=== PATIENT | female | born 1980 | race Caucasian/White ===

== ENCOUNTER 2023-10-31 15:51 | Emergency (ER) | payer OTHER, SELFPAY ==
[2023-10-31 15:53] VITALS: BP 112/84; PULSE 80; RESP 18; TEMP 36.3; O2SAT 100
--- NOTE | 2023-10-31 15:58 | ED.GENADULT ---
HPI - General Adult General Chief complaint: Wound/Laceration Stated complaint: facial abscess Time Seen by Provider: 10/31/23 15:58 Source: patient Mode of arrival: ambulatory Limitations: no limitations History of Present Illness HPI narrative: PATIENT WAKE UP FROM SLEEP 3 DAYS AGO WITH PIMPLE LIKE LESION AT THE LEFT FACE AT THE LEVEL OF THE LOWER GUM. SLIGHTLY HC, PATIENT KEPT SCRATCHING THAT PIMPLE, OPENED AND LEAKED CLEAR FLUID, YESTERDAY MORNING START GETTING SWELLING AND SURROUNDED BY ERYTHEMA. CURRENTLY PATIENT MAIN COMPLAINT SWELLING, PAIN AND ITCHING. SHE DENIES ANY FEVER, CHILLS, NAUSEA, VOMITING, HEADACHE, VISION CHANGE, TROUBLE SWALLOWING BREATHING. HISTORY OF ANXIETY, DEPRESSION AND GERD. Related Data Home Medications Medication Instructions Recorded Confirmed duloxetine 60 mg capsule,delayed 60 mg PO DAILY 10/31/23 10/31/23 release fremanezumab-vfrm 225 mg/1.5 mL 225 mg subcut MONTHLY 10/31/23 10/31/23 subcutaneous auto-injector ([facility]; to [facility]) ondansetron 4 mg disintegrating 4 mg PO Q4-6H PRN Nausea And 10/31/23 10/31/23 tablet Vomiting pantoprazole 40 mg tablet,delayed 40 mg PO BID 10/31/23 10/31/23 release rizatriptan 10 mg disintegrating 10 mg PO BID PRN Migraine Headache 10/31/23 10/31/23 tablet sumatriptan 20 mg/actuation nasal See Rx Instructions .Route .COMPLEX 10/31/23 10/31/23 spray tizanidine 2 mg tablet 2 mg PO TID PRN Migraine Headache 10/31/23 10/31/23 topiramate 100 mg tablet 100 mg PO BID 10/31/23 10/31/23 Allergies Allergy/AdvReac Type Severity Reaction Status Date / Time No Known Allergies Allergy Unknown Verified 08/22/06 09:12 Review of Systems Review of Systems: All systems reviewed & are unremarkable except as noted in HPI and below Exam Narrative: GENERAL APPEARANCE: WELL-DEVELOPED, WELL-NOURISHED SKIN: NORMAL COLOR , FACIAL EXAM SHOWED 2 MM SCABBED SURROUNDED BY ERYTHEMA AND SWELLING ROUGHLY 4 X 5 CM, NO DISCHARGE, TENDER TO TOUCH, SLIGHTLY WARM AT THE LEVEL OF THE LOWER GUM EXTERNALLY. NO LYMPHADENOPATHY HEAD: NORMOCEPHALIC, NONTRAUMATIC EYES: CLEAR CONJUNCTIVA ENT: OROPHARYNX NORMAL, EARS NORMAL, NOSE NORMAL NECK: SUPPLE, NONTENDER CHEST AND RESPIRATORY: AIRWAY PATENT, NO RESPIRATORY DISTRESS, NO ACCESSORY MUSCLE USE HEART: REGULAR RATE/RHYTHM NEUROLOGIC: ALERT AND ORIENTED ?3, HAND SPLITTER IS NORMAL TESTED, NO GROSS MOTOR DEFICIT Course Vital Signs Vital signs: Vital Signs Temperature 36.3 C L 10/31/23 15:53 Pulse Rate 80 10/31/23 15:53 Respiratory Rate 18 10/31/23 15:53 Blood Pressure 112/84 10/31/23 15:53 Pulse Oximetry 100 10/31/23 15:53 Oxygen Delivery Room Air 10/31/23 15:53 Temperature 36.3 C L 10/31/23 15:53 Pulse Rate 80 10/31/23 15:53 Respiratory Rate 18 10/31/23 15:53 Blood Pressure 112/84 10/31/23 15:53 Pulse Oximetry 100 10/31/23 15:53 Oxygen Delivery Room Air 10/31/23 15:53 Medical Decision Making MDM Narrative Medical decision making narrative: PATIENT PRESENTS WITH POSSIBLE INSECT BITE, PIMPLE, SECONDARY BACTERIAL INFECTION AT THE LEFT FACE AT THE LEVEL OF THE LOWERS GUM, PHYSICAL EXAMINATION SHOWED CELLULITIS AT THAT AREA AND SWELLING DIFFERENTIAL DIAGNOSIS INCLUDES INSECT BITE WITH SECONDARY BACTERIAL INFECTION, LOCALIZED ALLERGIC REACTION PATIENT DOES NOT HAVE ANY FEVER OR CHILLS, THE CELLULITIS AT THE LEVEL OF THE LOWER GUM, BLOOD WORKUP OR IMAGING ARE NOT REQUIRED AT THIS TIME. PATIENT WILL BE STARTED ON CLINDAMYCIN, PREDNISONE ,TO FOLLOW UP WITH FAMILY PHYSICIAN IN 3 DAYS. THE PT WAS DISCHARGED TO HOME.THE PT,S CONDITION UPON DISCHARGE WAS FAIR,EDUCATION WAS PROVIDED TO THE PT IN REFERENCE TO THE FINAL IMP
[2023-10-31 16:28] VITALS: BP 112/84; PULSE 80; RESP 18; TEMP 36.3; O2SAT 100
== END 2023-10-31 16:28 | disposition home or self-care (01) ==
PROVIDERS: Emergency Provider Emergency Medicine
DX: S00.86XA Insect bite (nonvenomous) of other part of head, initial encounter (principal); L03.211 Cellulitis of face; Z79.899 Other long term (current) drug therapy; W57.XXXA Bitten or stung by nonvenomous insect and other nonvenomous arthropods, initial encounter
CPT/HCPCS: 99283

== ENCOUNTER 2024-11-07 13:41 | Emergency (ER) | payer OTHER, SELFPAY ==
[2024-11-07] VITALS (9 sets, daily range): BP systolic 106–125; BP diastolic 63–79; PULSE 67–102; RESP 16–20; TEMP 36.6–36.8; O2SAT 98–100
--- NOTE | ~2024-11-07 | CT_ITS ---
EXAMINATION: CT abdomen pelvis w con, 11/07/2024 14:45 CDT HISTORY: abdominal pain after having a reaction to antibiotic COMPARISON: No comparisons available. TECHNIQUE: CT scan of the abdomen and pelvis was performed with contrast. Isovue 300, 92cc injected IV. One or more of the following dose reduction techniques were used: automated exposure control, adjustment of the mA and/or kV according to patient size, use of iterative reconstruction technique. Unless otherwise stated, incidental findings do not require dedicated follow up imaging FINDINGS: CT abdomen: LUNG BASES: Lung bases demonstrate scattered millimeter micronodules. LIVER: Unremarkable, liver contours intact, no lesions. SPLEEN: Unremarkable, no splenomegaly. KIDNEYS: Right Kidney: Unremarkable. No calculi. No hydronephrosis. Left Kidney: Unremarkable. No calculi. No hydronephrosis ADRENAL GLANDS: Unremarkable. PANCREAS: Unremarkable. GALLBLADDER/BILIARY: Unremarkable. No biliary dilatation. STOMACH AND ESOPHAGUS: Visualized stomach and esophagus within normal limits. BOWEL/MESENTERY: Moderate fecal content, no colitis or diverticulitis. Appendix normal. Mesentery is normal. Small bowel normal. ADENOPATHY/RETROPERITONEUM: No lymphadenopathy. AORTA/VASCULATURE: Partially imaged bilateral breast implants. FREE FLUID OR FREE AIR: No free fluid.. 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 Left ovary dominant follicle 1.5 x 1 cm. BLADDER: Within normal limits. OSSEOUS STRUCTURES: No acute osseous abnormality.No suspicious lesions. OVERLYING SOFT TISSUES: Unremarkable. IMPRESSION: 1. No etiology identified to explain the patient's symptoms. Follow-up suggested if symptoms persist. Reviewed, dictated and finalized at location A. IMPRESSION: 1. No etiology identified to explain the patient's symptoms. Follow-up suggeste d if symptoms persist.
--- NOTE | 2024-11-07 14:02 | ED.NAVMDI ---
HPI - Nausea/Vomiting/Diarrhea General Chief complaint: Nausea/Vomiting/Diarrhea Stated complaint: dizzness Time Seen by Provider: 11/07/24 13:58 Source: patient Mode of arrival: ambulatory Limitations: no limitations History of Present Illness HPI Narrative: 44 years old white female came to the ED by private car complaining of nausea and vomiting, For the last few days. Patient started on sulfa medication few days ago followed by nausea and vomiting was told to split bill into half and take it 4 times a day instead of twice a day for pain pills on the face. Patient is telling me the she been having intermittent pimple on the face for over 1 year. Scheduled to see a freight rate specialist soon. History of anxiety, depression, migraine headache. Patient report left-sided migraine headache for the last 2 weeks. LOT OF STRESS FOR MONTHS /YEARS BECAUSE SHE GOT DIVORCE AND HER KIDS GOT TAKEN AWAY FROM HER, Also complaining of generalized abdominal pain, last marijuana use 5 days Related Data Home Medications ?Medication ?Instructions ?Recorded ?Confirmed ?Last Taken ?Type duloxetine 60 mg capsule,delayed 60 mg PO DAILY 10/31/23 10/31/23 Unknown History release fremanezumab-vfrm 225 mg/1.5 mL 225 mg subcut MONTHLY 10/31/23 10/31/23 Unknown History subcutaneous auto-injector ([employer]) ondansetron 4 mg disintegrating 4 mg PO Q4-6H PRN Nausea And 10/31/23 10/31/23 Unknown History tablet Vomiting pantoprazole 40 mg tablet,delayed 40 mg PO BID 10/31/23 10/31/23 Unknown History release rizatriptan 10 mg disintegrating 10 mg PO BID PRN Migraine Headache 10/31/23 10/31/23 Unknown History tablet sumatriptan 20 mg/actuation nasal See Rx Instructions .Route .COMPLEX 10/31/23 10/31/23 Unknown History spray tizanidine 2 mg tablet 2 mg PO TID PRN Migraine Headache 10/31/23 10/31/23 Unknown History topiramate 100 mg tablet 100 mg PO BID 10/31/23 10/31/23 Unknown History Allergies Allergy/AdvReac Type Severity Reaction Status Date / Time No Known Allergies Allergy Unknown Verified 11/07/24 13:47 Review of Systems Review of Systems: All systems reviewed & are unremarkable except as noted in HPI and below Exam Narrative: General appearance: Well-developed, well-nourished Skin: Normal color Head: Normocephalic, nontraumatic Eyes: Clear conjunctiva ENT: Oropharynx normal, ears normal, nose normal Neck: Supple, nontender Chest and respiratory: Airway patent, no respiratory distress, no accessory muscle use Heart: Regular rate/rhythm Abdomen: Soft, mild diffuse abdominal tenderness, no guarding or rebound, no organomegaly, quiet bowel sounds Vascular: Normal peripheral pulses, normal capillary refill. Musculoskeletal: Normal range of motion, nontender back Neurologic: Alert and oriented ?3, CHIEF RISK OFFICER is normal as tested, no gross motor deficit Course Vital Signs Vital signs: Vital Signs Temperature 36.6 C 11/07/24 13:41 Pulse Rate 102 H 11/07/24 13:41 Respiratory Rate 20 11/07/24 13:41 Blood Pressure 125/79 11/07/24 13:41 Pulse Oximetry 99 11/07/24 13:41 Oxygen Delivery Room Air 11/07/24 13:41 Temperature 36.6 C 11/07/24 13:41 Pulse Rate 75 11/07/24 17:00 Respiratory Rate 18 11/07/24 17:00 Blood Pressure 108/68 11/07/24 17:00 Pulse Oximetry 99 11/07/24 17:00 Oxygen Delivery Room Air 11/07/24 17:00 MDM - Nausea/Vomiting/Diarrhea MDM Narrative Medical decision making narrative: patient came to the ED with nausea, vomiting, possible sulfa allergy, and migraine headache Vital signs showing heart rate of 102 otherwise within normal limit Physical examination showing patient with dry heave, holding vomiting bag in hand, looks tired and depressed , slight diffuse abdominal tenderness Differential diagnosis include drug allergy, migraine headache, electrolyte imbalance, dehydration, stress like symptoms Blood workup today includes CBC, CMP, lipase showed insignificant abnormality URINALYSIS SHOWED NO ACUTE ABNORMALITY CT ABDOMEN AND PELVIS WITH IV CONTRAST SHOWED NO ACUTE ABNORMALITY. DIAGNOSIS: STRESS, VOMITING, MIGRAINE HEADACHE THE PT WAS DISCHARGED TO HOME.THE PT,S CONDITION UPON DISCHARGE WAS FAIR,EDUCATION WAS PROVIDED TO THE PT IN REFERENCE TO THE FINAL IMPRESSION,DISCHARGE STUDY RESULTS,TREATMENT,PROGNOSIS AND NEED FOR FOLLOW UP . Differential Diagnosis Differential diagnosis: Likely other ( ABOVE) Medical Records Attestation: I reviewed the patient's medical records. Lab Data Attestation: I reviewed the patient's lab results. 11/07/24 14:05 11/07/24 14:05 Labs: Lab Results 11/07/24 11/07/24 Range/Units 14:05 16:45 WBC 5.9 (4.8-10.8) K/mm3 RBC 4.23 (4.20-5.40) M/mm3 Hgb 13.4 (12.0-15.0) g/dL Hct 40.2 (35.0-49.0) % MCV 95.0 (78.0-102.0) fL MCH 31.7 H (27.0-31.0) pg MCHC 33.3 (32-36) g/dL RDW 12.2 (11.6-14.4) % Plt Count 328 (150-420) K/mm3 MPV 10.4 (9.2-11.8) fl Immature Gran % (Auto) 0.5 H (0.0-0.0) % Neut % (Auto) 81.5 H (50.0-70.0) % Lymph % (Auto) 13.7 L (18.0-42.0) % [place] % (Auto) 4.1 (2.0-11.0) % Eos % (Auto) 0.0 L (1.0-6.0) % Baso % (Auto) 0.2 (0.0-1.0) % Lymph # (Auto) 0.81 L (1.10-4.50) K/mm3 [place] # (Auto) 0.24 (0.10-0.90) K/mm3 Eos # (Auto) 0.00 L (0.02-0.50) K/mm3 Baso # (Auto) 0.01 (0.00-0.10) K/mm3 Abs Immat Gran (auto) 0.03 H (0.00-0.00) K/mm3 Absolute Neuts (auto) 4.83 (1.70-7.20) K/mm3 Absolute Nucleated RBC 0.00 (0.00-0.00) K/mm3 Nucleated RBC % 0.0 (0-0.0) % Sodium 142 (137-145) mmol/L Potassium 4.3 (3.4-5.0) mmol/L Chloride 108 H (98-107) mmol/L Carbon Dioxide 18 L (22-30) mmol/L Anion Gap 16 H (4-12) mmol/L BUN 22 H (7-17) mg/dL Creatinine 0.97 (0.7-1.0) mg/dL Estim Creat Clear Calc 54 ml/min Estimated GFR > 60 (59 - ) Glucose 113 H (65-110) mg/dL Calculated Osmolality 298 H (285-295) mOsm/kg Calcium 10.4 H (8.4-10.2) mg/dL Total Bilirubin 1.5 H (0.2-1.3) mg/dL AST 26 (14-36) U/L ALT 17 (6-35) U/L Alkaline Phosphatase 41 (38-126) U/L Total Protein 8.8 H (6.3-8.2) g/dL Albumin 5.2 H (3.5-5.1) g/dL Lipase 172 (23-300) U/L Urine Color Yellow (Yellow) Urine Appearance Clear (Clear) Urine pH 5.0 (5.0-8.0) Ur Specific [place] 1.010 (1.010-1.020) Urine Protein Negative (Negative) Urine Glucose (UA) Negative (Negative) Urine Ketones 2+ H (Negative) Ur Blood (Man) Trace-intact H (Negative) Urine Nitrate Negative (Negative) Urine Bilirubin Negative (Negative) Urine Urobilinogen 0.2 (0.2-1.0) mg/dL Leukocyte Esterase Rfl Negative (Negative) PAVITHRA/UL Urine Test Negative Imaging Data Radiologist's impression: Impressions Abdomen/Pelvis CT 11/07/24 15:06 IMPRESSION: 1. No etiology identified to explain the patient's symptoms. Follow-up suggested if symptoms persist. Critical Care Time Critical Care Time Critical Care Time: Yes Total Critical Care Time: 30 Discharge Plan Discharge Clinical Impression: Headache, migraine, Vomiting, Stress Patient Disposition: Home Condition: Stable Instructions: Stress (ED), Acute Nausea and Vomiting (DC) Additional Instructions: RETURN IF SYMPTOMS ARE WORSENING , CALL YOUR FAMILY PHYSICIAN FOR APPOINTMENT, TAKE TYLENOL NEEDED FOR ACHES AND PAIN, CONTINUE HOME MEDICATIONS. Patient Language: Persian Prescriptions: New ondansetron 4 mg tablet,disintegrating 4 mg PO Q4H PRN (Reason: nausea and vomiting) 3 Days Qty: 10 0RF Discontinued prednisone 20 mg tablet 40 mg PO DAILY 5 Days Qty: 10 0RF No Action tizanidine 2 mg tablet 2 mg PO TID PRN (Reason: Migraine Headache) rizatriptan 10 mg tablet,disintegrating 10 mg PO BID PRN (Reason: Migraine Headache) Rx Instructions: Dissolve 1 tablet in mouth as needed for migraine, can repeat dosage in 2 hours if needed. pantoprazole 40 mg tablet,delayed release (DR/EC) 40 mg PO BID sumatriptan 20 mg/actuation spray,non-aerosol See Rx Instructions .ROUTE .COMPLEX Rx Instructions: Please see attached for detailed directions ondansetron 4 mg tablet,disintegrating 4 mg PO Q4-6H PRN (Reason: Nausea And Vomiting) topiramate 100 mg tablet 100 mg PO BID duloxetine 60 mg capsule,delayed release(DR/EC) 60 mg PO DAILY Ajovy Autoinjector 225 mg/1.5 mL auto-injector 225 mg SUBCUT MONTHLY clindamycin HCl 300 mg capsule 300 mg PO Q6H Qty: 40 0RF Follow-up/Referrals: UNKNOWN,DOCTOR [Non-Staff]
[2024-11-07 14:10] LABS: Hematocrit 40.2 % (35.0-49.0); Hemoglobin 13.4 g/dL (12.0-15.0); Immature Granulocyte Percent A 0.5 % (0.0-0.0); Lymphocytes Absolute Auto 0.81 K/mm3 (1.10-4.50); Mean Corpuscular HGB Conc 33.3 g/dL (32-36); Mean Corpuscular Hemoglobin 31.7 pg (27.0-31.0); Mean Corpuscular Volume 95.0 fL (78.0-102.0); Nucleated Red Blood Cells Absolute Auto 0.00 K/mm3 (0.00-0.00); Nucleated Red Blood Cells Perc 0.0 % (0-0.0); Platelet Count Result 328 K/mm3 (150-420); Red Blood Count 4.23 M/mm3 (4.20-5.40); White Blood Count 5.9 K/mm3 (4.8-10.8)
[2024-11-07] MEDS: ONDANSETRON INJ 4 MG/2 ML VIAL IV PUSH (14:21)
[2024-11-07] MEDS: SODIUM CHLORIDE 0.9% IV 2,000 ML 999 ML IV CONT (14:21)
[2024-11-07 14:22] LABS: Alanine Aminotransferase 17 U/L (6-35); Albumin Level 5.2 g/dL (3.5-5.1); Alkaline Phosphatase 41 U/L (38-126); Anion Gap 16 mmol/L (4-12); Aspartate Amino Transferase 26 U/L (14-36); Bilirubin,Total 1.5 mg/dL (0.2-1.3); Blood Urea Nitrogen 22 mg/dL (7-17); Calcium 10.4 mg/dL (8.4-10.2); Carbon Dioxide 18 mmol/L (22-30); Chloride 108 mmol/L (98-107); Estimated CRCL calculation 54 ml/min; Estimated Glomerular Filt Rate > 60; Glucose 113 mg/dL (65-110); Lipase 172 U/L (23-300); Osmolality Calculated 298 mOsm/kg (285-295); Potassium 4.3 mmol/L (3.4-5.0); Sodium 142 mmol/L (137-145); Total Protein 8.8 g/dL (6.3-8.2)
[2024-11-07] MEDS: KETOROLAC 30 MG/ML VIAL (*BKC) IV PUSH (14:25)
[2024-11-07 16:49] LABS: Add Urine Microscopic? NO; Appearance Urine Clear (Clear); Glucose Urine UA Negative (Negative); Leukocyte Esterase Ur Negative LEU/UL (Negative); Nitrate Urine Negative (Negative); Specific Grav Ur 1.010 (1.010-1.020)
[2024-11-07 16:53] LABS: Pregnancy On Board Control Positive
== END 2024-11-07 17:23 | disposition home or self-care (01) ==
PROVIDERS: Emergency Provider Emergency Medicine
DX: G43.909 Migraine, unspecified, not intractable, without status migrainosus (principal); R11.10 Vomiting, unspecified; F43.9 Reaction to severe stress, unspecified; Z79.899 Other long term (current) drug therapy
CPT/HCPCS: 36415; 74177; 80053; 81003; 81025; 83690; 85025; 96361; 96374; 96375; 99284; J1200; J1885; J2405; J7030; Q9967